=== PATIENT | female | born 1995 | race Caucasian/White ===

== ENCOUNTER 2020-09-19 16:56 | Emergency (ER) | payer OTHER ==
[~2020-09-19] VITALS: Ht 154.9 cm; Wt 123.8 kg
== END 2020-09-19 19:52 | disposition home or self-care (01) ==
LOC: ER 16:56
DX: G44.89 Other headache syndrome (principal)

== ENCOUNTER 2021-05-06 21:00 | Emergency (ER) | payer OTHER ==
[~2021-05-06] VITALS: Ht 154.9 cm; Wt 112.9 kg
== END 2021-05-06 21:35 | disposition home or self-care (01) ==
LOC: ER 21:00
DX: S69.92XA Unspecified injury of left wrist, hand and finger(s), initial encounter (principal); Y92.003 Bedroom of unspecified non-institutional (private) residence as the place of occurrence of the external cause; W06.XXXA Fall from bed, initial encounter